=== PATIENT | female | born 1965 | race Caucasian/White ===

== ENCOUNTER → 2017-10-19 | Outpatient (CLI) | payer MEDICARE, MEDICAID ==
[~2017-10-19] MED LIST: AEROCHAMBER1 DEV IH; ALBUTEROL2 PUFFS/17 IN; AMBIEN 5MG TAB5 MG PO; AMOXIL500 MG PO; APAP PO; ATIVAN1 MG PO; BACLOFEN 10MG T10 MG PO; BUTALB PO; CAF PO; CLONAZEPAM0.5 M1 PO; COLCHICINE0.6 MG PO; DARVOCET-N 1001 EACH PO; IBUPROFEN800 MG PO; LEXAPRO 10 MG T10 MG PO; LIPITOR20 MG PO; LORTAB 5/500 501 TAB PO; LYRICA150 M1 PO; LYRICA75 MG PO; MEDROL 4MG. DOSE4 MG PO; OMEPRAZOLE20 MG PO; OXYBUTYNIN CHLO10 MG PO; OXYCODONE AND A1 TA5 PO; OXYCONTIN30 M1 PO; PERCOCET 325 MG1 TA4 PO; PERCOCET 5/3251 EACH PO; PERCOCET1 TA1 PO; PREDNISONE 20MG20 MG PO; PROZAC 20MG CAP20 MG PO; TECFIDERA240 M1 PO; TRAMADOL 50MG T50 MG PO; VALACYCLOVIR HYD1 GM PO; VENLAFAXINE HCL50 MG PO; WELLBUTRIN100 MG PO; XARELTO15 MG PO; ZITHROMAX Z PA250 MG PO; ZOFRAN4 MG PO; ZOLPIDEM 10MG T10 MG PO
--- NOTE | 2017-10-19 15:50 | RADIOLOGY REPORT PS360 ---
ARTERIAL/CSC-[id number] BLUE EXTREMITY, left blue toe with discoloration of the tip of the great toe., Rest pain, claudication, smoker ORDERING PHYSICIAN: Nehemiah Gama MD PATIENT AGE: 52 years TECHNIQUE: Segmental pressures obtained of both right and left leg. These are compared to brachial blood pressure to yield index at each level sampled including summary IAN. The data sheets from the procedure are available in PACS FINDINGS Rest study only performed today No prior studies available for comparison. Blood pressures reported are in millimeters mercury. RIGHT LEG IAN = 1.1 Right TBI is 0.6. Brachial BP: 148 Thigh BP: 162 Calf BP: 171 Ankle PT: 169 Ankle DP : 168 Digit =86 LEFT LEG IAN = 1.1 Left IAN is 0 with no pulse detected in the left great toe Brachial BPD: 148 Thigh BP: 172 Calf BP: 167 Ankle PT:156 Ankle DP: 113 Digit = 0 Pulses and waveforms: Posterior tibialis pulses are normal. The dorsalis pedis pulses are diminished IMPRESSION: 1. Normal ABIs. 2. Decreased right TBI of 0.6. Indicating mild small vessel disease on the right 3. No pulses detected within the left great toe
== END ==
LOC: RAD 14:35
DX: I99.9 Unspecified disorder of circulatory system (principal); M79.672 Pain in left foot; R09.89 Other specified symptoms and signs involving the circulatory and respiratory systems

== ENCOUNTER → 2017-10-26 | Outpatient (CLI) | payer MEDICARE, MEDICAID ==
--- NOTE | 2017-10-26 20:01 | RADIOLOGY REPORT PS360 ---
CTA-CHEST, CTA ABD/PELVIS CT A abdomen Ordering Physician: Jaun Hess MD Patient Age: 52 years: Female HISTORY: GANGRIOUS GREAT TOE,PAD,TOBACCO USE TECHNIQUE: Bolus administration 100 cc Isovue 370 with SmartPrep prep scanning beginning at the apex along the upper chest and continuing to the level of the hips. The thin section Helical CT scanning performed through the chest, abdomen & majority pelvis reportedly was to evaluate aorta. The supervisor microbiology technologists called the office but they did not wantrunoff, & declinedt CTA of the lower legs. COMPARISON :CTA chest from July 2010 FINDINGS Normal appearance the aortic arch minimal calcified plaque at origin of left common carotid and left subclavian. No septic narrowing at the vessels. Aorta arch itself is smooth in contour with no dissection nor irregular plaque. The descending thoracic aorta to is smooth only noting a thin minor areas of smooth appearing partially calcified plaque along the right margin of the lower thoracic aorta. Continuing into the abdomen we again see smooth plaque with areas of calcification along the course the aorta. No prominent irregular plaque or ulceration evident. 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 SMA and JONEL unremarkable. Renal. Arteries arise at different levels but appear widely patent Minimal plaque is also seen at the distal aorta and origins iliac arteries with less than 10-15% stenosis from these areas of narrowing. Perhaps slightly more pronounced 30-30% moderate narrowing of the of the left common iliac artery. Less narrowing on right right. The external iliac artery is relatively free of calcified plaque. Last images are at the level the hips and do not include groin. CT abdomen: Other comments Normal enhancement of the kidneys, pancreas and early normal enhancement of liver. A flow artifact on this early scan most likely accounts for the inhomogeneous enhancement of the portal vein leading to the liver. No significant bowel findings. Difficult to exclude symptoms sludge or noncalcified stones in gallbladder. If symptoms here suggest gallbladder ultrasound CT chest: Other comments Emphysematous changes throughout bleb formation most evident the apices, posterior apices.. Borderline to mild airway thickening centrally. Mild fibrotic changes and scarring posterior aspect of the lower lobes. A similar 2010.l 8 cm calcified granuloma posterior right lower lobe. No mediastinal or hilar adenopathy. Scattered small nodes right paratracheal region stable. Largest right precarinal node measuring 14 mm x 8 5 mm. This only slightly larger than 2010 but not felt to be significant. Streak artifact. Limits study at this specific level. Chest wall unremarkable. . IMPRESSION: -------- 1 Overall minimal atherosclerotic disease of the aorta. No ulceration of or irregular plaque 2. Smooth areas plaque with scattered areas of calcification. These become most evident towards Lower abdominal aorta into the iliac arteries....Up to 30-35% stenosis left common iliac due to calcified plaque, with less narrowing from calcified plaque at the right common iliac artery noted. 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 Scanning performed only down to the level of the hips 3. Cannot exclude minimal, noncalcified stones or sludge in gallbladder.
--- NOTE | 2017-10-27 05:24 | RADIOLOGY REPORT PS360 ---
\ PROCEDURE: 2-D M-mode and color Doppler study INDICATIONS FOR THE TEST: Chest pain+ COPD Heart Murmur Tobacco Smoking+ Palpitations Fatigue Syncope Edema Hypertension Diabetes Mellitus Rheumatic Fever SOB LEAHY Obesity Hyperlipidemia+ Family History HD+ Additional History PATIENT INFORMATION HEIGHT: 64 WEIGHT: 180 GENDER: Female B/P: 124/74 2-D/M-MODE INTERPRETATION: 2-D MEASUREMENTS OBSERVED VALUES IN CMS Right Ventricular Dimension (RVDd) 2.2 Interventricular Septum (Thickness)(IVsd) 1.4 Left Ventricular Internal Dimensions(LVIDd) 4.5 Left Ventricular Posterior Wall (Thickness)(LVPWd) 1.3 Aortic Root 3.4 Aortic Cusp Separation 2.4 Left Atrial Dimensions (LAD) 3.8 2D 1. Left atrium is normal size, left ventricle is normal size, left ventricle wall thickness is upper limit of normal, there is preserved left ventricular systolic function, visually estimated ejection fraction 55% with no obvious regional wall motion abnormality. 2. The right atrium and right ventricle are qualitatively mildly enlarged with normal contractility. 3. The aortic valve is minimally thickened and fibrosed. 4. The mitral and tricuspid valve is structurally normal. 5. The pulmonic valve is poorly visualized. 6. No significant pericardial effusion noted. DOPPLER INTERROGATION: Doppler interrogation of the aortic, mitral and tricuspid valvular presence of mild mitral and tricuspid regurgitation, tricuspid regurgitant jet velocity insufficient for calculation of the right ventricular pressure, diastolic parameters are within normal range. CONCLUSION: 1. Normal left ventricular size, preserved left ventricular systolic function, visually estimated ejection fraction 55% with no obvious regional wall motion abnormality. Diastolic parameters are within normal range. 2. Mild mitral and tricuspid regurgitation. 3. No significant pericardial effusion noted.
== END ==
LOC: RAD 11:07 → RT 14:30 → RAD 15:15
DX: I73.9 Peripheral vascular disease, unspecified (principal); E78.5 Hyperlipidemia, unspecified; I96 Gangrene, not elsewhere classified; Z72.0 Tobacco use; R07.9 Chest pain, unspecified
CPT/HCPCS: Q9967